=== PATIENT | female | born 1995 | race Caucasian/White ===

== ENCOUNTER 2016-05-13 15:40 | Emergency (ER) | payer OTHER ==
[~2016-05-13] VITALS: Ht 165.1 cm; Wt 56.5 kg
[2016-05-13 16:02] VITALS: TEMP 36.8; Ht 165.1 cm; Wt 56.5 kg
[2016-05-13] MEDS ORDERED: SODIUM CHLORIDE 0.9% 1000ML 1,000 ML IV ONE (17:52)
[2016-05-13] MEDS ORDERED: SODIUM CHLORIDE 0.9% 1000ML 1,000 ML IV STA (17:52)
[2016-05-13 18:07] LABS: BASO % 0.2 %; BASO ABS # 0.02 K/uL (0-0.2); COMPLETE YES; EOS % 0.1 %; HEMATOCRIT 38.6 % (37-47); IG% 0.1 %; LYMPH % 21.7 %; LYMPH ABS # 1.77 K/uL (1.2-3.4); MEAN CELL VOLUME 88.3 fL (80-100); MEAN CORPUSCULAR HEMOGLOBIN 31.8 pg (25-34); MEAN PLATELET VOLUME 10.1 fL (7.4-10.4); NEUT % 72.9 %; PLATELET COUNT 229 K/uL (130-400); RED BLOOD COUNT 4.37 M/uL (4.2-5.4); WHITE BLOOD COUNT 8.15 K/uL (4.8-10.8)
--- NOTE | 2016-05-13 18:23 | EMERGENCY ROOM VISIT NOTE ---
History Report prepared by Mara: Yanique Workman Under the Supervision of: Dr. Jem Galicia M.D. First contact with patient: 17:41 Chief Complaint: CHEST PAIN Stated Complaint: CHEST PAIN,ABNORMAL EKG Nursing Triage Summary: Pt c/o tightness in chest last night and this morning. Pt then had 10 minute episode where she couldn't breathe well. Denies any other symptoms. Symptoms have since resolved History of Present Illness The patient is a 21 year old female who presents to the Emergency Room with complaints of intermittent substernal chest pain that began yesterday. She currently rates her discomfort as a 2/10 in severity. The patient states that last evening she went out drinking, noting that she drank heavily. She states that today she woke up feeling hung-over and states that she attributed all of her symptoms to being hung-over. The patient states that after she went about her normal routine, she was not feeling better. She did state that she noticed the chest pain yesterday as well. The patient describes her pain as and achiness and tightness. She notes nausea, shortness of breath, wheezing, and dizziness. The patient denies any vomiting. She denies any drug use or tobacco use. The patient denies any recent fall or trauma. She denies any history of lung or heart problems. She denies any recent travel or control use. The patient denies any pain with breathing. She states that she still has her gallbladder. The patient denies any surgical history. She states that she went to [facility] today and was sent here for further evaluation and treatment. The patient notes that her parents have histories nonthreatening heart problems. Source of History: patient, transfer records Onset: yesterda Position: chest (substernal) Symptom Intensity: 2/10 Quality: ache, other (tightness) Timing: intermittent Associated Symptoms: + SOB, + nausea, No vomiting Note: Associated Symptoms: wheezing, dizziness Review of Systems See HPI for pertinent positives & negatives. A total of 10 systems reviewed and were otherwise negative. Past Medical & Surgical Old medical records were reviewed. Nurse's notes were reviewed and I agree with.. No active medical problems. Denies history of cardiac disease or pulmonary disease. No history of blood clots. Family History No pertinent family history stated. Social History Smoking Status: Never Smoker Smokeless Tobacco Use: No Alcohol Use: occasionally Drug Use: none Marital Status: single Occupation Status: [employer] student Current/Historical Medications No Active Prescriptions or Reported Meds Allergies Coded Allergies: No Known Allergies (Unverified , 05/13/16) Physical Exam Vital Signs Date Time Temp Pulse Resp B/P Pulse Ox O2 Delivery O2 Flow Rate FiO2 05/13/16 19:38 92 16 118/77 100 Room Air 05/13/16 17:44 73 05/13/16 17:37 72 16 118/68 100 Room Air 05/13/16 17:32 99 Room Air 05/13/16 16:02 36.8 88 20 123/73 100 Room Air Physical Exam General: Well developed well nourished non-ill appearing young female in no acute distress, breathing comfortably on room air. Normal speech HEENT: Normal cephalic atraumatic. Pupils are equal round and reactive to light. Extraocular movements are intact. Oropharynx is pink with moist mucous membranes. No swelling of the mouth lips or tongue. Neck: Supple with a midline trachea. No meningeal signs or stiffness, no JVD or bruits. No Stridor. Chest: Clear to auscultation bilaterally. No wheezes or rhonchi. No increased work of breathing. Heart: regular rate and rhythm. Abdomen: Soft nontender, nondistended without rebound guarding or rigidity. Extremities: No cyanosis clubbing or edema. No calf tenderness or assymetry Spine/Back. Non tender to palpation. No CVA tenderness Skin: Good turgor without rashes. Neurologic exam: Cranial nerves two through 12 are intact. Motor and sensation are intact and symmetrical throughout. Medical Decision & Procedures ER Provider Diagnostic Interpretation: Chest x-ray per my interpretation from [facility] reveals no pneumothorax, failure, or infiltrate. Laboratory Results 05/13/16 17:30 Red Blood Count 4.37, Mean Corpuscular Volume 88.3, Mean Corpuscular Hemoglobin 31.8, Mean Corpuscular Hemoglobin Concent 36.0, Mean Platelet Volume 10.1, Neutrophils (%) (Auto) 72.9, Lymphocytes (%) (Auto) 21.7, Monocytes (%) (Auto) 5.0, Eosinophils (%) (Auto) 0.1, Basophils (%) (Auto) 0.2, Neutrophils # (Auto) 5.93, Lymphocytes # (Auto) 1.77, Monocytes # (Auto) 0.41, Eosinophils # (Auto) 0.01, Basophils # (Auto) 0.02 05/13/16 17:30 Test 05/13/16 17:30 05/13/16 18:00 White Blood Count 8.15 K/uL (4.8-10.8) Red Blood Count 4.37 M/uL (4.2-5.4) Hemoglobin 13.9 g/dL (12.0-16.0) Hematocrit 38.6 % (37-47) Mean Corpuscular Volume 88.3 fL (80-100) Mean Corpuscular Hemoglobin 31.8 pg (25-34) Mean Corpuscular Hemoglobin Concent 36.0 g/dl (32-36) Platelet Count 229 K/uL (130-400) Mean Platelet Volume 10.1 fL (7.4-10.4) Neutrophils (%) (Auto) 72.9 % Lymphocytes (%) (Auto) 21.7 % Monocytes (%) (Auto) 5.0 % Eosinophils (%) (Auto) 0.1 % Basophils (%) (Auto) 0.2 % Neutrophils # (Auto) 5.93 K/uL (1.4-6.5) Lymphocytes # (Auto) 1.77 K/uL (1.2-3.4) Monocytes # (Auto) 0.41 K/uL (0.11-0.59) Eosinophils # (Auto) 0.01 K/uL (0-0.5) Basophils # (Auto) 0.02 K/uL (0-0.2) RDW Standard Deviation 40.8 fL (36.4-46.3) RDW Coefficient of Variation 12.7 % (11.5-14.5) Immature Granulocyte % (Auto) 0.1 % Immature Granulocyte # (Auto) 0.01 K/uL (0.00-0.02) Anion Gap 11.0 mmol/L (3-11) Est Creatinine Clear Calc Drug Dose 108.7 ml/min Estimated GFR () 136.5 Estimated GFR (Non- 117.7 BUN/Creatinine Ratio 10.7 (10-20) Calcium Level 9.3 mg/dl (8.5-10.1) Total Bilirubin 1.7 mg/dl (0.2-1) Direct Bilirubin 0.3 mg/dl (0-0.2) Aspartate Amino Transf (AST/SGOT) 13 U/L (15-37) Alanine Aminotransferase (ALT/SGPT) 22 U/L (12-78) Alkaline Phosphatase 38 U/L (45-117) Total Protein 7.6 gm/dl (6.4-8.2) Albumin 4.5 gm/dl (3.4-5.0) Lipase 76 U/L (73-393) Thyroid Stimulating Hormone (TSH) 1.280 uIu/ml (0.300-4.500) Human Chorionic Gonadotropin, Qual NEG (NEG) Bedside D-Dimer 149 ng/mlFEU (0-450) Bedside Troponin I 0.000 ng/ml (0-0.045) Laboratory studies as stated above per my review. Medications Administered Medications (Trade) Dose Ordered Sig/Lisa Route Start Time Stop Time Status Last Admin Dose Admin Sodium Chloride (Nss 1000ml) 1,000 ml @ 999 mls/hr Q1H1M STAT IV 05/13/16 17:52 05/13/16 18:52 DC 05/13/16 18:02 999 MLS/HR ECG Indication: chest pain Rate (beats per minute): 78 Rhythm: normal sinus Findings: no acute ischemic change, no ectopy, other (right axis deviation) Comparison ECG Date: no prior available ED Course 1744: Past medical records reviewed. The patient was evaluated in room C3, and a complete history and physical examination were performed. 1751: Ordered Sodium Chloride 1000 ml @ 150 mls/hr IV, Sodium Chloride 1000 ml @ 999 mls/hr IV. 0: I reevaluated the patient and she is resting comfortably. I discussed the exam findings with her and I discussed the treatment plan. She verbalized complete understanding and agreement. She is ready to go home. Medical Decision Differentials include, but are not limited to; acute coronary syndrome, arrhythmia, PE, pneumothorax, electrolyte or metabolic abnormalities. This Patient comes in after having an episode of epigastric discomfort and shortness of breath. She feels better now. She was seen at urgent care center sent over here. Her EKG showed a mildly prolonged QT interval as well as right axis deviation and has no ischemic changes. I repeated an EKG here and her QTC is minimally elevated and she has nothing to suggest arrhythmia and I do not think this is causing her symptoms. Her troponin was not elevated. I did review the the x-ray that they did at the urgent care center and she has no acute infiltrate failure or pneumothorax. She's had no acute electrode or metabolic abnormalities. She has nothing to suggest liver gallbladder or pancreas disease acutely. Her d-dimer is negative and in a low pretest test probability setting, makes PE highly unlikely. She is feeling good all be discharged to home. This may be related to gastritis or Musculoskeletal or anxiety. I encouraged her to rest and drink plenty of fluids and not drink anymore alcohol. Return if: worsening symptoms, recurrence of symptoms, shortness of breath, any new problems or concerns. She was happy with the plan and was discharged to home. Impression Primary Impression: Central chest pain Scribe Attestation The scribe's documentation has been prepared under my direction and personally reviewed by me in its entirety. I confirm that the note above accurately reflects all work, treatment, procedures, and medical decision making performed by me. Departure Information Dispostion Home / Self-Care Prescriptions No Active Prescriptions or Reported Meds Referrals [facility] (PCP) Forms HOME CARE DOCUMENTATION FORM, IMPORTANT VISIT INFORMATION Patient Instructions My [facility] Additional Instructions Rest. Drink plenty of fluids. May use ibuprofen 400 mg every 6 hours if needed Return if: Worsening symptoms, recurrence of symptoms, fever chills, any new problems or concerns Follow-up with your doctor or student health clinic this week for recheck.
[2016-05-13 18:25] LABS: BUN/CREATININE RATIO 10.7 (10-20); CALCIUM 9.3 mg/dl (8.5-10.1); CREATININE 0.73 mg/dl (0.60-1.20); POTASSIUM 3.3 mmol/L (3.5-5.1)
[2016-05-13 18:36] LABS: THYROID STIMULATING HORMONE 1.28 uIu/ml (0.300-4.500)
[2016-05-13 18:39] LABS: PREG INTERNAL NEGATIVE QC NEG CLEAR BACKGROUND; PREG INTERNAL POSITIVE QC POS CONTROL LINE
[2016-05-13 19:38] VITALS: BP 118/77; PULSE 92; O2SAT 100
== END 2016-05-13 19:45 | disposition home or self-care (01) ==
LOC: C.EDB 15:41 → C.EDC 19:45
DX: R07.9 Chest pain, unspecified (principal)